=== PATIENT | female | born 1960 | race Caucasian/White ===

== ENCOUNTER 2018-02-05 14:16 | Outpatient (REF) | payer SELFPAY ==
[2018-02-05 22:59] LABS: ALT 27 U/L (12-78); AST 18 U/L (15-37); Albumin 3.5 g/dL (3.4-5.0); Alkaline Phosphatase 59 U/L (46-116); Anion Gap 8.1 mmol/L (3-11); BUN 14 mg/dL (7-18); Bilirubin, Total 0.4 mg/dL (0.2-1.0); CO2 28.9 mmol/L (21.0-32.0); CREATININE 0.78 mg/dL (0.55-1.02); Chloride 104 mmol/L (98-107); Cholesterol 169 mg/dL (50-200); Glucose 93 mg/dL (70-100); HDL Cholesterol 51 mg/dL (40-60); LDL CHOLESTEROL 105 mg/dL (<100); Sodium 141 mmol/L (136-145); Total Protein 6.8 g/dL (6.4-8.2); Triglyceride 87 mg/dL (30-150)
[2018-02-05 23:02] LABS: Hemoglobin A1C 5.6 % (4.5-6.2)
[2018-02-07 10:45] LABS: Hepatitis C Ab w Rflx HCV PCR Negative (NEGAT)
== END 2018-02-05 14:36 ==
LOC: NCHCN 14:16
PROVIDERS: PCP Registered Nurse; Visit Provider Nurse Practitioner Family
DX: Z13.228 Encounter for screening for other metabolic disorders (principal); Z13.1 Encounter for screening for diabetes mellitus; Z11.59 Encounter for screening for other viral diseases; Z13.220 Encounter for screening for lipoid disorders; Z00.00 Encounter for general adult medical examination without abnormal findings
CPT/HCPCS: 80053; 80061; 83721; 86803; 83036

== ENCOUNTER 2020-05-19 00:28 | Outpatient (CLI) | payer OTHER, SELFPAY ==
--- NOTE | 2020-05-19 | DI.MAMMO_ITS ---
EXAM: MG MAMMO SCREENING CLINICAL HISTORY: SCREENING, Z12.39 TECHNIQUE: Bilateral full field digital CC and MLO mammographic images were obtained with 3D tomosyn thesis and utilizing computer aided detection (CAD). COMPARISON: Available for comparison. FINDINGS: Masses/Architectural Distortion: None seen. Microcalcifications: No suspicious pleomorphic-type are seen. Skin Thickening/Nipple Retraction: None. IMPRESSION: 1. No significant interval change with no specific features of malignancy noted. 2. Unless there is more urgent need, screening mammography is recommended, as per [place] guidelines. BI-RADS Category 1 - Negative Breast Density - Category B - Scattered areas of fibroglandular density Breast density category C or D implies that the patient has dense breast tissue. Dense breast tissue is very common and is not abnormal but dense breast tissue can make it harder to find cancer on a ma mmogram. Also, dense breast tissue may increase their breast cancer risk. This information about the result of the mammogram report was provided to the patient to raise their awareness. Use this report when you speak with the patient about their risks for breast cancer, which includes their family hist ory. At that time, you may recommend for more screening tests (Ultrasound or MRI) as they might be us eful based on their risk. A negative radiographic report should not delay biopsy if a dominant or clinically suspicious mass is present. Up to ten percent of cancers are not identified on mammography. A negative report may reinforce clinical impression. Adenosis and dense breasts may obscure an underlying neoplasm. False positive reports average 6 to 10%. Patient will receive a letter notifying them of these results.
== END 2020-05-19 00:29 | disposition home or self-care (01) ==
LOC: DI 00:29
PROVIDERS: PCP Registered Nurse; Visit Provider Nurse Practitioner Family
DX: Z12.31 Encounter for screening mammogram for malignant neoplasm of breast (principal)
CPT/HCPCS: 77063; 77067

== ENCOUNTER 2020-05-26 11:40 | Outpatient (REF) | payer OTHER, SELFPAY ==
[2020-05-26 13:20] LABS: Abs Immature Grans 0.04 10^3/uL (0.0-0.06); Absolute Basophil Count 0.06 10^3/uL (0.0-0.2); Absolute Eosinophil Count 0.22 10^3/uL (0.0-0.7); Absolute Lymphocyte Count 2.63 10^3/uL (1.2-3.4); Absolute Monocyte Count 0.36 10^3/uL (0.1-0.8); Absolute Neutrophil Count 3.71 10^3/uL (1.2-6.7); Basophils % 0.9; Eosinophils % 3.1; HCT 45.9 % (36.0-46.0); HGB 14.8 g/dL (11.2-15.7); Immature Grans % 0.6; Lymphocytes % 37.5; MCH 28.4 pg (27.0-33.0); MCHC 32.2 % (32.0-36.0); MCV 88.1 fL (80-95); MPV 11.1 fL (8.0-11.0); Monocytes % 5.1; Neutrophils % 52.8; Nucleated RBC 0 %; Platelet Count 276 10^3/uL (130-400); RBC 5.21 10^6/uL (3.93-5.22); RDW 12.7 % (11.7-14.6); WBC 7.02 10^3/uL (4.4-10.8)
[2020-05-26 13:38] LABS: ALT 30 U/L (14-59); AST 17 U/L (15-37); Albumin 3.7 g/dL (3.4-5.0); Alkaline Phosphatase 66 U/L (46-116); Anion Gap 6.6 mmol/L (3-11); BUN 12 mg/dL (7-18); Bilirubin, Total 0.4 mg/dL (0.2-1.0); CO2 30.4 mmol/L (21.0-32.0); CREATININE 0.8 mg/dL (0.55-1.02); Calcium 8.9 mg/dL (8.5-10.1); Calculated LDL 106 mg/dL (<100); Chloride 105 mmol/L (98-107); Cholesterol 181 mg/dL (<200); Glucose 86 mg/dL (74-106); HDL Cholesterol 59 mg/dL (40-60); Potassium 3.9 mmol/L (3.5-5.1); Sodium 142 mmol/L (136-145); TSH (W/Ref FT4) 1.18 uIU/mL (0.36-3.74); Total Protein 7.3 g/dL (6.4-8.2); Triglyceride 83 mg/dL (<150)
[2020-05-27 11:20] LABS: HIV-1/2 Ag & Ab Screen Negative (Negative)
== END 2020-05-26 11:41 | disposition home or self-care (01) ==
LOC: NCHCN 11:40
PROVIDERS: PCP Registered Nurse; Visit Provider Nurse Practitioner Family
DX: Z00.00 Encounter for general adult medical examination without abnormal findings
CPT/HCPCS: 80053; 80061; 87389; 84443; 85025

== ENCOUNTER 2020-08-08 03:36 | Outpatient (CLI) | payer OTHER, SELFPAY ==
[2020-08-08 11:34] LABS: Source Nasal/Nares
[2020-08-08 18:17] LABS: COVID-19 PCR Negative (Negative)
== END 2020-08-08 03:37 | disposition home or self-care (01) ==
LOC: LBO 03:37
PROVIDERS: PCP Registered Nurse; Visit Provider Surgery
DX: Z20.822 Contact with and (suspected) exposure to COVID-19 (principal); Z01.818 Encounter for other preprocedural examination
CPT/HCPCS: 87635

== ENCOUNTER 2020-08-10 11:50 | Day surgery (SDC) | payer OTHER, SELFPAY ==
--- NOTE | 2020-08-10 09:27 | HPE_ITS ---
Date of service: 08/10/20 Time of Service: 13:48 Assessment and Plan Assessment and plan (1) Encounter for colorectal cancer screening: Status: Acute Assessment and plan: Mrs. Medel is a pleasant 60-year-old female who over the last year has been having intermittent bloating, increased gas and burping after eating. She also complains of some right lower quadrant discomfort. She was noted to have blood in her stool when tested at the primary care physician's office. She also tells me that she intermittently has bright red blood and she thinks that that is a hemorrhoid. She did have a colonoscopy in her 20s for some bleeding after delivering one of her children and she was told she had a hemorrhoid which was banded. She also tells me she had an upper endoscopy done years ago but cannot remember the findings. She was recently started on omeprazole which does help with the bloating and burping. We discussed doing both an upper endoscopy as well as a colonoscopy. Occult blood could be from her stomach as much as it could be from her large bowel. We reviewed both procedures in detail using pamphlets. Discussed Covid testing and quarantine requirements prior to her procedures. She tells me that she works at a [employer] and she gets tested for Covid twice a week. Risks, benefits and complications have been reviewed. Complications include but are not limited to bleeding, pain, perforation, missed small lesion/polyp, sore throat, aspiration and adverse reaction to the medications. Questions were entertained and answered to their satisfaction and they wished to proceed. No guarantees were given or implied. COVID-19 testing explained to the patient. Reason for test reviewed. Quarantine per state requirements reviewed with patient. Patient understands and agrees to testing. Proceed with colonoscopy and EGD under sedation. (2) Heart burn: Status: Acute History of Present Illness Narrative: Ms Medel is a pleasant 60-year-old female who was referred to the office for a colonoscopy. She tells me that over the last year she has had intermittent right lower quadrant discomfort, bloating, gas and increased burping. It can be after eating. She has had intermittent bright red blood per rectum, this is usually just on the toilet paper. She had a colonoscopy in her 20s after having her baby due to rectal bleeding. She stated that she was told it was normal except for some hemorrhoids which were removed. She also tells me that she had an upper endoscopy years ago for heartburn. She was never asked to start an antacid at that time. She recently was started on omeprazole 20 mg daily by her primary care physician. She does feel like that has helped slightly with her bloating and gas. Her stool was also tested in the office and was noted to be positive for blood. She denies any family history of colon or rectal cancer. She denies any unintentional weight loss, nausea or vomiting. She is otherwise fairly healthy active 60-year-old. She denies any heart disease, history of CA, history of breathing issues. She does have hearing loss and wears bilateral hearing aids. No new issues since she was seen in the office Review of Systems Constitutional Constitutional: Denies fever(s), Denies headache(s) and Denies weight loss Eyes Eyes: Denies exophthalmos ENT Ears, Nose, Mouth, and Throat: Denies change in voice and Denies headache(s) Cardiovascular Cardiovascular: Denies chest pain, Denies chest pain at rest, Denies irregular heart rhythm, Denies dyspnea and Denies dyspnea on exertion Respiratory Respiratory: Denies cough, Denies dyspnea and Denies dyspnea on exertion Gastrointestinal Gastrointestinal: Reports as per HPI Genitourinary Genitourinary: Denies dysuria, Denies urinary incontinence and Denies urinary urgency Musculoskeletal Musculoskeletal: Reports system reviewed and no additional complaints, except as documented Integumentary/Breasts Skin/Breast: Reports system reviewed and no additional complaints, except as documented Neurologic Neurologic: Denies headache(s) Endocrine Endocrine: Reports system reviewed and no additional complaints, except as documented Hematologic/Lymphatic Hematologic/Lymphatic: Denies easy bruising and Denies lymphadenopathy [facility] Medical History Hearing loss History of hemorrhoids Surgical History History of D&C (~1986) History of D&C (~2006) History of laparoscopy History of tonsillectomy Social History Smoking/Tobacco Use Status: Former Tobacco Use Quit Date: 04/15/92 Smoking risk assessment performed?: Yes Alcohol Intake: never Drug use: Never Substance use type: does not use Current gender identity: female Do you feel safe at home: Yes Do you feel safe in your relationship?: Yes Meds Allergies and Home Medications Allergies Allergy/AdvReac Type Severity Reaction Status Date / Time No Known Allergies Allergy Unverified 08/08/20 14:55 Home Medications Medication Instructions Recorded Confirmed Type cetirizine 10 mg tablet 10 mg PO DAILY PRN 06/27/20 08/10/20 History omeprazole 20 mg capsule,delayed 20 mg PO DAILY 06/27/20 08/10/20 History release Exam Const General: healthy appearing and comfortable Resp Effort & Inspection: normal respiratory effort Auscultation: clear to auscultation bilaterally Cardio Rate: regular rate Rhythm: regular rhythm Heart Sounds: no click, no gallops and no murmurs
--- NOTE | 2020-08-10 09:34 | ENDO_ITS ---
Date of service: 08/10/20 Time of Service: 16:08 Endoscopy Report DATE OF PROCEDURE: 08/10/20 PRE-OP DIAGNOSIS: Colon Cancer Screening, Heart Burn PROCEDURE: 1. EGD with biopsies 2. Colonoscopy with polypectomy SURGEON: Gifty Steve ANESTHESIA TYPE: General:No Airway ESTIMATED BLOOD LOSS: 3 PATHOLOGY: other (bx of antrum, gastric polyp, GE junction bx, Ascending, sigmoid x2 and rectal polyp) COMPLICATIONS: None DISPOSITION: same day INDICATIONS: Mrs. Medel is a pleasant 60-year-old female who over the last year has been having intermittent bloating, increased gas and burping after eating. She also complains of some right lower quadrant discomfort. She was noted to have blood in her stool when tested at the primary care physician's office. She also tells me that she intermittently has bright red blood and she thinks that that is a hemorrhoid. She did have a colonoscopy in her 20s for some bleeding after delivering one of her children and she was told she had a hemorrhoid which was banded. She also tells me she had an upper endoscopy done years ago but cannot remember the findings. She was recently started on omeprazole which does help with the bloating and burping. We discussed doing both an upper endoscopy as well as a colonoscopy. Occult blood could be from her stomach as much as it could be from her large bowel. We reviewed both procedures in detail using pamphlets. Discussed Covid testing and quarantine requirements prior to her procedures. She tells me that she works at a [employer] and she gets tested for Covid twice a week. Risks, benefits and complications have been reviewed. Complications include but are not limited to bleeding, pain, perforation, missed small lesion/polyp, sore throat, aspiration and adverse reaction to the medications. Questions were entertained and answered to their satisfaction and they wished to proceed. No guarantees were given or implied. COVID-19 testing explained to the patient. Reason for test reviewed. Quarantine per state requirements reviewed with patient. Patient understands and agrees to testing. Proceed with colonoscopy and EGD under sedation. PREP: Miralax/Dulcolax PROCEDURE START TIME: 15:02 PROCEDURE END TIME: 15:50 COLONOSCOPY RETRACTION TIME: 30 minutes FINDINGS: mild inflammation of the stomach and esophagus. Duodenum normal 4 polyps One sigmoid polyp >1 cm, area tattooed PROCEDURE DESCRIPTION: After informed consent was obtained the patient was t dory to the procedure room and placed in a supine position. Monitors were applied and a time out was done. The patients name, date of , procedure type, allergies to medications and metal in their body was reviewed. A bite block was placed and the patient was sedated. Once sedated and comfortable the gastroscope was advanced through the oropharynx which was grossly normal into the esophagus. The proximal and mid- esophagus were normal. In the distal esophagus there was mild inflammation noted. The scope was advanced into the stomach and through the pylorus into the 3rd portion of the duodenum. The duodenum was noted to be normal. The scope was retracted back into the stomach. There was mild inflammation noted in the antrum and body. Biopsies were done to rule out H. pylori. There were no ulcers. One polyp was noted in the body of the stomach, and removed and sent to pathology. The scope was retro-flexed. The cardia and fundus were noted to be normal. There was no hiatal hernia noted. The scope was retracted back into the esophagus and biopsies were done of the GE junction to rule out Maki's. The Z line was regular. The GE junction was at 35 cm. While the patient was still sedated they were placed in a left decubitous position. A rectal exam was done. External exam revealed Grade 2 hemorrhoids. Internal exam revealed a decreased sphincter tone and no palpable masses. The scope was then introduced and retro-flexed. No internal hemorrhoids, masses or polyps were identified on retroflexion. The scope was then advanced to the cecum without difficulty. The ileocecal valve and appendiceal orifice were identified. The prep was good. The scope was then slowly retracted over 30 minutes back into the rectum. Polyps were removed with cold forceps in the ascending colon, sigmoid colon and rectum. One larger pedunculated polyp was removed with hot snare in the proximal sigmoid colon. The area was tattooed. There was no diverticulosis noted. The scope was removed and the patient was woken up and taken back to Same day surgery in stable condition. The patient tolerated the procedure well and there were no immediate complications. Follow up:
--- NOTE | 2020-08-10 09:35 | W.PM.DSUDISC ---
Discharge Plan Disposition Patient Disposition: HOME Condition: Good Discharge Details Reason For Visit: Colonoscopy/EGD Attending Provider: Gifty Steve Primary Care Provider: Ayah Mariano Home Meds and New Rx's Prescriptions: New omeprazole 20 mg capsule,delayed release(DR/EC) 20 mg PO BID Qty: 60 RF: 0 Continued cetirizine [All Day Allergy (cetirizine)] 10 mg tablet 10 mg PO DAILY PRNRF: 0 Discontinued bisacodyl [Dulcolax (bisacodyl)] 5 mg tablet,delayed release (DR/EC) 5 mg PO ONCE Qty: 4 RF: 0 polyethylene glycol 3350 17 gram powder in packet 255 g PO DAILY Qty: 15 RF: 0 omeprazole 20 mg capsule,delayed release(DR/EC) 20 mg PO DAILY RF: 0 Discharge Instructions Instructions: Diet for Stomach Ulcers and Gastritis (ED), Gastric Polyps (DC), Gastritis (DC), GERD (Gastroesophageal Reflux Disease) in Children (DC), Diverticulosis (DC), Colorectal Polyps (DC) Additional Instructions: Findings:1- Inflammation of the stomach and esophagus 2. Small polyp in the stomach which looked benign 3. A few polyps in the large intestine 4. Descending and sigmoid diverticulosis I will send a letter to you and call if there is anything worrisome Please call if you develop: fevers >101.5 Nausea or Vomiting Abdominal pain that is not transient Rectal bleeding that is more then a tbsp A hard abdomen and inability to pass gas DAY SURGERY UNIT POST ENDOSCOPY INSTRUCTIONS Instructions for everyone who is given Anesthesia: For your safety, please do the following for the next 24 Hours: a. Do not drive or operate dangerous equipment b. Do not drink alcohol beverages or use any recreational drugs for the first 24 hours or while taking pain medications. The medications in your body may have a reaction that can be dangerous. c. Do not make any important decisions or sign any important papers 1. Generally there are no restrictions on your activity after a day or so has gone by, but you may feel a bit fatigued for a few days. 2. After you arrive home you may have a light meal and return to a normal diet as you can tolerate it without feeling sick to your stomach. 3. After surgery, you may feel pain or discomfort. This should be only transient, but if it persists please contact your doctor. 4. If there are any questions regarding the findings of your procedure, please feel free to contact your doctor. 6. If you are unable to contact your doctor with a problem, contact the hospital at [phone]. 7. Continue all your regular medications unless directed otherwise. I understand the above instructions and have no questions. Signature of Patient or Responsible Adult Escort Date/Time Name of Responsible Adult Escort Signature of Nurse Date/Time Activity:: Activity as Tolerated Diet:: low acid Discharge Orders Discharge Orders: Discharge Order (Routine); Ordered 08/10/20 Ordered By: Gifty Steve DS: Diagnosis Discharge Diagnosis (1) Encounter for colorectal cancer screening: Status: Acute (2) Heart burn: Status: Acute
[2020-08-10 12:06] VITALS: BP 156/95; PULSE 100; RESP 16; TEMP 36.6; O2SAT 96
[2020-08-10] MEDS: Lactated Ringers 1,000 ML 80 ML IV (12:27)
--- NOTE | 2020-08-10 12:36 | W.ANESPRE ---
General Info Date of Service Date Performed: 08/10/20 Height: 5 ft 1 in Weight: 68.509 kg Body Mass Index (BMI): 28.5 Surgical Procedure: Operation Date: 08/10/20 12:05 Proposed Procedures Side Surgeon p Colonoscopy/Gastroscopy Gifty Steve MD Meds Allergies and Home Medications Allergies Allergy/AdvReac Type Severity Reaction Status Date / Time No Known Allergies Allergy Unverified 08/08/20 14:55 Home Medication Medication Instructions Recorded cetirizine 10 mg tablet 10 mg PO DAILY PRN 06/27/20 omeprazole 20 mg capsule,delayed 20 mg PO DAILY 06/27/20 release Current Visit Medications: Current Medications Generic Name Dose Route Start Last Admin Trade Name Freq PRN Reason Stop Dose Admin Hyoscyamine Sulfate 0.125 mg 08/10/20 09:36 Hyoscyamine 0.125 Mg Sl/Oral/Chew SL DIRECTED PRN Ringer's Solution 1,000 mls @ 80 mls/hr 08/10/20 06:00 08/10/20 12:27 IV 09/08/20 23:59 80 mls/hr INFUSION JEANE Administration IV Miscellaneous Supplies 1 each 08/10/20 06:00 Iv Access IV 09/08/20 23:59 DIRECTED JEANE Ondansetron HCl 4 mg 08/10/20 09:36 Ondansetron 4 Mg/2 Ml Vial IVP Q4H PRN PRN Nausea / Vomiting Sodium Chloride 0 ml 08/10/20 06:00 Normal Saline Flush 10 Ml Syr IV 09/08/20 23:59 PRN PRN Sodium Chloride 0 ml 08/10/20 06:00 Normal Saline 10 Ml Vial IJ 09/08/20 23:59 DIRECTED PRN Sterile Water 0 ml 08/10/20 06:00 Water,Injection,Sterile 10 Ml Vial IJ 09/08/20 23:59 DIRECTED PRN PFSH Active Problems Active Problems: Problem Status Onset Code Guaiac positive stools R19.5 Heart burn R12 Encounter for colorectal cancer screening Z12.11, Z12.12 Medical History Medical History Hearing loss History of hemorrhoids Surgical History Surgical History History of D&C (~1986) History of D&C (~2006) History of laparoscopy History of tonsillectomy Tobacco Smoking/Tobacco Use Status: Former Tobacco Use Alcohol Alcohol Intake: never Substance Use Substance use: Never Substance use type: does not use Vital Signs and Lab Results Vital Signs Most Recent Vital Signs in EMR: Most Recent Vital Signs Temp Pulse Resp BP Pulse Ox 36.6 C 100 H 16 156/95 H 96 08/10/20 12:06 08/10/20 12:06 08/10/20 12:06 08/10/20 12:06 08/10/20 12:06 Lab Results Blood Type / Crossmatch: No Data to Display Complete Blood Count: White Blood Count 7.02 10^3/uL (4.4-10.8) 05/26/20 10:00 05/26/20 Red Blood Count 5.21 10^6/uL (3.93-5.22) 05/26/20 10:00 05/26/20 Hemoglobin 14.8 g/dL (11.2-15.7) 05/26/20 10:00 05/26/20 Hematocrit 45.9 % (36.0-46.0) 05/26/20 10:00 05/26/20 Platelet Count 276 10^3/uL (130-400) 05/26/20 10:00 05/26/20 Complete Metabolic Panel: Sodium Level 142 mmol/L (136-145) 05/26/20 10:00 05/26/20 Potassium Level 3.9 mmol/L (3.5-5.1) 05/26/20 10:00 05/26/20 Chloride Level 105 mmol/L (98-107) 05/26/20 10:00 05/26/20 Carbon Dioxide Level 30.4 mmol/L (21.0-32.0) 05/26/20 10:00 05/26/20 Blood Urea Nitrogen 12 mg/dL (7-18) 05/26/20 10:00 05/26/20 Creatinine 0.8 mg/dL (0.55-1.02) 05/26/20 10:00 05/26/20 Calcium Level 8.9 mg/dL (8.5-10.1) 05/26/20 10:00 05/26/20 Albumin 3.7 g/dL (3.4-5.0) 05/26/20 10:00 05/26/20 Glucose Level 86 mg/dL (74-106) 05/26/20 10:00 05/26/20 Hemoglobin A1c 5.6 % (4.5-6.2) 02/05/18 14:00 02/05/18 Liver Function Panel: Alanine Aminotransferase (ALT/SGPT) 30 U/L (14-59) 05/26/20 10:00 05/26/20 Aspartate Amino Transf (AST/SGOT) 17 U/L (15-37) 05/26/20 10:00 05/26/20 Coagulation Panel: No Data to Display Cardiac Panel: No Data to Display Arterial Blood Gas: No Data to Display Venous Blood Gas: No Data to Display Pancreas Panel: Lipase 181 U/L (73-393) 01/10/16 14:10 01/10/16 Thyroid Panel: Thyroid Stimulating Hormone (TSH) 1.18 uIU/mL (0.36-3.74) 05/26/20 10:00 05/26/20 Infectious Disease: Coronavirus (COVID-19)(PCR) Negative (Negative) 08/08/20 10:31 08/08/20 Coronavirus 2019 Source Nasal/nares 08/08/20 10:31 08/08/20 HIV (1&2) Ag and Ab, 4th Generation Negative (Negative) 05/26/20 10:00 05/26/20 Hepatitis C Antibody Negative (NEGAT) 02/05/18 14:00 02/05/18 Blood Cultures: No Data to Display Toxicology Panel: No Data to Display Panel: No Data to Display Anesthesia Assessment and Plan Anesthesia History Personal History: No History of Anesthesia Complications Family History: No Family History of Anesthesia Complications Exercise Tolerance Exercise Tolerance: Metabolic Equivalents>4 Pertinent Negatives Pertinent Negatives: No Major Cardiovascular Symptoms or Complaints, No Major Pulmonary Symptoms or Complaints and No History of CVA/TIA Cardiac & Pulmonary Exam Cardiac Exam: Normal S1/S2 Heart Sounds Pulmonary Exam: Clear Bilateral Breath Sounds and Seasonal Allergies Airway Exam Known Difficult Airway: No Mallampati Class: 2 Mouth Opening: Normal (> 3cm) Thyromental Distance: Greater than 3 cm Neck Range of Motion: Full ROM Neck Circumference: Normal Teeth Condition: Removable Dentures/Plates Upper and Removable Dentures/Plates Lower ASA Classification ASA Score: ASA 2 ASA Emergency: No NPO Status NPO Status: NPO Clears >2 hours, Solids >8 hours Anesthesia Plan Anesthesia Technique: General Anesthesia Airway Planned: Natural Airway Monitors Used: Standard Monitors
[2020-08-10 12:51] VITALS: BMI 28.5
--- NOTE | 2020-08-10 15:05 | BOWEL_PTH ---
PATIENT: Deb Medel LOC: [facility] U#:[id number] AGE/SX: 60/F ROOM: RE08/10/[address]: Gifty Steve MD : 1960 BED: DIS: 08/10/2020 SPEC #: [id number] RECD: 08/10/20 16:40 STATUS: CHRISTINA RESanjuana #: [id number] SHARON: 08/10/20 15:[address]: Gifty Steve DEPT: Surgical Specimen RECD BY: Catalina Cortés ENTERED: 08/10/20 16:41 SP TYPE: Bowel OTHR DR: Ayah Montez Tissues: 1 - STOMACH BIOPSY 2 - STOMACH BIOPSY 3 - ESOPHAGUS BIOPSY 4 - BIOPSY BOWEL 5 - BIOPSY BOWEL 6 - BIOPSY BOWEL 7 - BIOPSY BOWEL Procedures: GROSS AND MICRO LEVEL 4 Comments: [id number]
[2020-08-10] MEDS: Endoscopic Tattoo 5 ML SYR IJ (15:42)
[2020-08-10 16:17] VITALS: BP 129/78; PULSE 80; RESP 14; TEMP 36.5; O2SAT 95
[2020-08-10 16:42] VITALS: BP 151/94; PULSE 84; RESP 16; TEMP 36.2; O2SAT 96
--- NOTE | 2020-08-10 16:48 | W.ANESPOSTOP ---
Postoperative Evaluation Date, Time and Location Date Performed: 08/10/20 Time Performed: 16:48 Patient Location: Day Surgery Unit Vital Signs Most Recent Imported Vital Signs: Most Recent Vital Signs Temp Pulse Resp BP Pulse Ox 36.5 C 80 14 129/78 95 08/10/20 16:17 08/10/20 16:17 08/10/20 16:17 08/10/20 16:17 08/10/20 16:17 Pain Score Most Recent Pain Score: Most Recent Pain Score Pain Level 0 08/10/20 16:17 Assessment Mental Status: Awake (Alert & Oriented to Patient Baseline) Airway and Respiratory Function: Patent airway with normal (patient baseline) respiratory exam Cardiovascular Function: Hemodynamically Stable Hydration Status: Adequately Hydrated Nausea & Vomiting: No Nausea or Vomiting Pain: Pt. Denies Any Pain Peripheral Nerve Block: Patient did not receive a nerve block
== END 2020-08-10 17:15 | disposition home or self-care (01) ==
LOC: SUR 11:50
PROVIDERS: PCP Registered Nurse; Visit Provider Surgery
PROC: (CPT 45385; principal; 2020-08-10 12:00)
DX: Z12.11 Encounter for screening for malignant neoplasm of colon (principal); K31.7 Polyp of stomach and duodenum; K62.1 Rectal polyp; D12.2 Benign neoplasm of ascending colon; D12.5 Benign neoplasm of sigmoid colon
CPT/HCPCS: 45385; 45380; 45381; 43239; 88305; J2001

== ENCOUNTER 2021-02-15 18:47 | Outpatient (REF) | payer OTHER, SELFPAY ==
[2021-02-17 10:44] LABS: COVID-19 RT-PCR UVMMC Result Negative (Negative)
== END 2021-02-15 18:48 | disposition home or self-care (01) ==
LOC: NCHCN 18:47
PROVIDERS: PCP Registered Nurse; Visit Provider Nurse Practitioner Community Health
DX: Z20.822 Contact with and (suspected) exposure to COVID-19 (principal); J06.9 Acute upper respiratory infection, unspecified
CPT/HCPCS: U0003

== ENCOUNTER 2021-09-28 08:38 | Outpatient (REF) | payer OTHER, SELFPAY ==
--- NOTE | 2021-09-28 08:04 | PAPFT_PTH ---
PATIENT: Deb Medel LOC: [facility]#:[id number] AGE/SX: 61/F ROOM: RE09/28/[address]: Kelsi Mendez : 1960 BED: DIS: 09/28/2021 SPEC #: [id number] RECD: 09/28/21 17:15 STATUS: CHRISTINA RESanjuana #: [id number] SHARON: 09/28/21 08:[address]: Kelsi Mendez DEPT: [facility] Cytology RECD BY: Catalina Cortés ENTERED: 09/28/21 17:16 SP TYPE: PAPFT OTHR DR: Ayah Montez Tissues: 1 - CX/ENDOCX FOR PAP SMEARS Procedures: PAP THIN PREP/[facility] Screening HPV DNA PROBE Comments: [id number] (CHLAMYDIA/GC)
[2021-09-28 15:38] LABS: ALT 35 U/L (14-59); AST 32 U/L (15-37); Albumin 3.6 g/dL (3.4-5.0); Alkaline Phosphatase 72 U/L (46-116); Anion Gap 5.5 mmol/L (3-11); BUN 11 mg/dL (7-18); Bilirubin, Total 0.4 mg/dL (0.2-1.0); CO2 30.5 mmol/L (21.0-32.0); CREATININE 0.8 mg/dL (0.55-1.02); Calcium 8.8 mg/dL (8.5-10.1); Calculated LDL 126 mg/dL (<100); Chloride 107 mmol/L (98-107); Cholesterol 200 mg/dL (<200); Glucose 90 mg/dL (74-106); HDL Cholesterol 58 mg/dL (40-60); Magnesium 2.2 mg/dL (1.8-2.4); Potassium 3.7 mmol/L (3.5-5.1); Sodium 143 mmol/L (136-145); Total Protein 6.9 g/dL (6.4-8.2); Triglyceride 83 mg/dL (<150)
[2021-09-28 15:39] LABS: Hemoglobin A1C 5.8 % (<5.7)
[2021-09-29 15:06] LABS: Chlamydia Result Negative (Negative); GC Result Negative (Negative)
== END 2021-09-28 08:39 | disposition home or self-care (01) ==
LOC: NCHCN 08:38
PROVIDERS: PCP Registered Nurse; Visit Provider Nurse Practitioner Family
DX: Z11.3 Encounter for screening for infections with a predominantly sexual mode of transmission (principal); Z12.4 Encounter for screening for malignant neoplasm of cervix; Z11.51 Encounter for screening for human papillomavirus (HPV); K21.9 Gastro-esophageal reflux disease without esophagitis; Z51.81 Encounter for therapeutic drug level monitoring; E66.3 Overweight; R03.0 Elevated blood-pressure reading, without diagnosis of hypertension; Z00.00 Encounter for general adult medical examination without abnormal findings; Z13.1 Encounter for screening for diabetes mellitus
CPT/HCPCS: 80053; 80061; 87491; 87591; 88142; 83036; 83735; 87624

== ENCOUNTER 2021-11-13 17:51 | Outpatient (REF) | payer OTHER, SELFPAY ==
[2021-11-13 21:39] LABS: Anion Gap 6.4 mmol/L (3-11); BUN 18 mg/dL (7-18); CO2 27.6 mmol/L (21.0-32.0); CREATININE 0.8 mg/dL (0.55-1.02); Calcium 9.1 mg/dL (8.5-10.1); Chloride 106 mmol/L (98-107); Glucose 115 mg/dL (74-106); Potassium 3.6 mmol/L (3.5-5.1); Sodium 140 mmol/L (136-145)
== END 2021-11-13 17:52 | disposition home or self-care (01) ==
LOC: NCHCN 17:51
PROVIDERS: PCP Registered Nurse; Visit Provider Nurse Practitioner Family
DX: I10 Essential (primary) hypertension (principal)
CPT/HCPCS: 80048

== ENCOUNTER 2021-12-08 18:53 | Outpatient (REF) | payer OTHER, SELFPAY ==
[2021-12-08 16:47] LABS: Anion Gap 9.3 mmol/L (3-11); BUN 11 mg/dL (7-18); CO2 27.7 mmol/L (21.0-32.0); CREATININE 0.8 mg/dL (0.55-1.02); Calcium 8.4 mg/dL (8.5-10.1); Chloride 107 mmol/L (98-107); Glucose 136 mg/dL (74-106); Potassium 3.4 mmol/L (3.5-5.1); Sodium 144 mmol/L (136-145)
== END 2021-12-08 18:54 | disposition home or self-care (01) ==
LOC: NCHCN 18:53
PROVIDERS: PCP Registered Nurse; Visit Provider Nurse Practitioner Family
DX: R03.0 Elevated blood-pressure reading, without diagnosis of hypertension (principal)
CPT/HCPCS: 80048

== ENCOUNTER → 2022-01-11 03:45 | Outpatient (CLI) | payer OTHER, SELFPAY ==
--- NOTE | 2022-01-11 08:00 | DI.MAMMO_ITS ---
Exam(s) MAMMO SCREENING EXAM: MAMMO SCREENING CLINICAL HISTORY: SCREENING, Z12.39, [facility],Z00.00 TECHNIQUE: Bilateral full field digital CC and MLO mammographic images were obtained with 3D tomosyn thesis and utilizing computer aided detection (CAD). COMPARISON: Available for comparison. FINDINGS: Masses/Architectural Distortion: None seen. Microcalcifications: No suspicious pleomorphic-type are seen. Skin Thickening/Nipple Retraction: None. IMPRESSION: 1. No significant interval change with no specific features of malignancy noted. 2. Unless there is more urgent need, screening mammography is recommended, as per [place] [employer] guidelines. BI-RADS Category 1 - Negative Breast Density - Category B - Scattered areas of fibroglandular density Breast density category C or D implies that the patient has dense breast tissue. Dense breast tissue is very common and is not abnormal but dense breast tissue can make it harder to find cancer on a ma mmogram. Also, dense breast tissue may increase their breast cancer risk. This information about the result of the mammogram report was provided to the patient to raise their awareness. Use this report when you speak with the patient about their risks for breast cancer, which includes their family hist ory. At that time, you may recommend for more screening tests (Ultrasound or MRI) as they might be us eful based on their risk. A negative radiographic report should not delay biopsy if a dominant or clinically suspicious mass is present. Up to ten percent of cancers are not identified on mammography. A negative report may reinforce clinical impression. Adenosis and dense breasts may obscure an underlying neoplasm. False positive reports average 6 to 10%. Patient will receive a letter notifying them of these results.
== END ==
PROVIDERS: PCP Registered Nurse; Visit Provider Nurse Practitioner Family
DX: Z12.31 Encounter for screening mammogram for malignant neoplasm of breast (principal)
CPT/HCPCS: 77063; 77067

== ENCOUNTER 2022-01-16 18:22 | Outpatient (REF) | payer OTHER, SELFPAY ==
[2022-01-16 20:52] LABS: ALT 25 U/L (14-59); AST 20 U/L (15-37); Albumin 3.3 g/dL (3.4-5.0); Alkaline Phosphatase 59 U/L (46-116); Anion Gap 4.6 mmol/L (3-11); BUN 15 mg/dL (7-18); Bilirubin, Total 0.2 mg/dL (0.2-1.0); CO2 31.4 mmol/L (21.0-32.0); CREATININE 0.9 mg/dL (0.55-1.02); Calcium 8.9 mg/dL (8.5-10.1); Chloride 107 mmol/L (98-107); Estimated GFR 71.39 (mL/min/1.73m2); Glucose 109 mg/dL (74-106); Potassium 3.7 mmol/L (3.5-5.1); Sodium 143 mmol/L (136-145); Total Protein 6.9 g/dL (6.4-8.2)
== END 2022-01-16 18:23 | disposition home or self-care (01) ==
LOC: NCHCN 18:22
PROVIDERS: PCP Registered Nurse; Visit Provider Nurse Practitioner Family
DX: I10 Essential (primary) hypertension (principal)
CPT/HCPCS: 80053

== ENCOUNTER 2022-11-21 18:26 | Outpatient (REF) | payer OTHER, SELFPAY ==
[2022-11-21 20:56] LABS: Anion Gap 5.9 mmol/L (3-11); BUN 13 mg/dL (7-18); CO2 29.1 mmol/L (21.0-32.0); CREATININE 1.1 mg/dL (0.55-1.02); Calcium 8.9 mg/dL (8.5-10.1); Chloride 109 mmol/L (98-107); Estimated GFR 56.11 (mL/min/1.73m2); Glucose 102 mg/dL (74-106); Potassium 3.9 mmol/L (3.5-5.1); Sodium 144 mmol/L (136-145)
[2022-11-21 21:01] LABS: Hemoglobin A1C 5.8 % (<5.7)
== END 2022-11-21 18:27 | disposition home or self-care (01) ==
LOC: NCHCN 18:26
PROVIDERS: PCP Registered Nurse; Visit Provider Nurse Practitioner Family
DX: Z00.00 Encounter for general adult medical examination without abnormal findings (principal); I10 Essential (primary) hypertension; R73.03 Prediabetes
CPT/HCPCS: 80048; 83036

== ENCOUNTER → 2023-01-25 02:33 | Outpatient (CLI) | payer OTHER, SELFPAY ==
--- NOTE | 2023-01-25 | DI.DEXA_ITS ---
Exam(s) XR DEXA BONE DENSITY W/WO LAUREL EXAM: XR DEXA BONE DENSITY W/WO LAUREL CLINICAL HISTORY: PREVENTIVE HEALTH CARE Z00.00 TECHNIQUE: HoloAsysco C densitometer analysis of left hip, lumbar spine and left forearm. Lat eral survey image of the thoracic and lumbar spine. COMPARISON: CR LUMBAR SPINE COMPLETE from 04/25/2009 FINDINGS: Lateral view of the thoracic and lumbar spine shows no evidence of compression fractures. Bone mineral density measurements of the lumbar spine correspond to a total T-score of 0.3, in the no rmal range. Bone mineral density measurements of the left hip correspond to a total T-score of -1.1. The femora l neck T-score is -1.7, in the osteopenic range.. Theleft forearm bone mineral density measurements correspond to a T-score of the distal 3rd of -1.9, in the osteopenic range.. IMPRESSION: Normal bone mineral density of the lumbar spine. Osteopenia of the hip and forearm.
== END ==
PROVIDERS: PCP Registered Nurse; Visit Provider Nurse Practitioner Family
DX: Z13.820 Encounter for screening for osteoporosis (principal); M85.89 Other specified disorders of bone density and structure, multiple sites
CPT/HCPCS: 77080

== ENCOUNTER 2023-01-28 17:37 | Outpatient (REF) | payer OTHER, SELFPAY ==
[2023-01-28 21:30] LABS: Anion Gap 6.6 mmol/L (3-11); BUN 17 mg/dL (7-18); CO2 26.4 mmol/L (21.0-32.0); Calcium 9.3 mg/dL (8.5-10.1); Chloride 107 mmol/L (98-107); Estimated GFR 62.52 (mL/min/1.73m2); Glucose 103 mg/dL (74-106); Potassium 4.2 mmol/L (3.5-5.1); Sodium 140 mmol/L (136-145)
== END 2023-01-28 17:38 | disposition home or self-care (01) ==
LOC: NCHCN 17:37
PROVIDERS: PCP Registered Nurse; Visit Provider Nurse Practitioner Family
DX: E78.5 Hyperlipidemia, unspecified (principal); I10 Essential (primary) hypertension
CPT/HCPCS: 80048

== ENCOUNTER 2023-07-23 12:34 | Outpatient (REF) | payer OTHER, SELFPAY ==
[2023-07-23 15:15] LABS: Bacteria Rare HPF (Negative); C & S Indicated? No; Casts Negative LPF (Negative); Crystals Negative HPF (Negative); Epithelial Cells Few HPF (Negative); Mucus Trace (Negative); RBC Negative HPF (0-2); WBC Negative HPF (0-5)
== END 2023-07-23 12:35 | disposition home or self-care (01) ==
LOC: NCHCN 12:34
PROVIDERS: PCP Registered Nurse; Visit Provider Nurse Practitioner Family
DX: R39.15 Urgency of urination (principal)
CPT/HCPCS: 81015

== ENCOUNTER 2023-11-20 13:19 | Outpatient (REF) | payer OTHER, SELFPAY ==
[2023-11-20 22:06] LABS: Calculated LDL 108 mg/dL (<100); Cholesterol 178 mg/dL (<200); HDL Cholesterol 59 mg/dL (40-60); Triglyceride 55 mg/dL (<150)
[2023-11-21 11:49] LABS: Hemoglobin A1C 5.7 % (<5.7)
== END 2023-11-20 13:20 | disposition home or self-care (01) ==
LOC: NCHCN 13:19
PROVIDERS: PCP Registered Nurse; Visit Provider Nurse Practitioner Family
DX: E78.5 Hyperlipidemia, unspecified (principal); R73.03 Prediabetes
CPT/HCPCS: 80061; 83036

== ENCOUNTER 2023-12-25 01:53 | Outpatient (CLI) | payer OTHER, SELFPAY ==
--- NOTE | 2023-12-25 | DI.MAMMO_ITS ---
Exam(s) MAMMO SCREENING EXAM: MAMMO SCREENING CLINICAL HISTORY: SCREENING, Z12.38 TECHNIQUE: Mammograms were interpreted according to the usual protocol including computer analysis w [facility] CAD system, tomosynthesis and C-view imaging. COMPARISON: 2017 through 2021 FINDINGS: The breasts are composed of scattered fibroglandular densities, Breast Density category B. No suspicious masses or suspicious microcalcifications are seen. No skin thickening or abnormal axillary lymph nodes are seen. There has been no significant change from prior exams. IMPRESSION: BI-RADS Category 1, Negative mammogram Yearly screening mammography is recommended. Breast Density - Category B, scattered fibroglandular densities. A negative radiographic report should not delay biopsy if a dominant or clinically suspicious mass is present. Up to ten percent of cancers are not identified on mammography. A negative report may reinforce clinical impression. Adenosis and dense breasts may obscure an underlying neoplasm. False positive reports average 6 to 10%. Patient will receive a letter notifying them of these results.
== END 2023-12-25 02:13 ==
LOC: DI 01:54
PROVIDERS: PCP Registered Nurse; Visit Provider Nurse Practitioner Family
DX: Z12.31 Encounter for screening mammogram for malignant neoplasm of breast (principal)
CPT/HCPCS: 77063; 77067

== ENCOUNTER 2025-01-13 15:50 | Outpatient (REF) | payer MEDICARE, OTHER, SELFPAY ==
[2025-01-13 15:58] LABS: HCT 52.2 % (36.0-46.0); HGB 16.5 g/dL (11.2-15.7); MCH 28.2 pg (27.0-33.0); MCHC 31.6 % (32.0-36.0); MCV 89 fL (80-95); MPV 11.0 fL (8.0-11.0); Platelet Count 262 10^3/uL (130-400); RBC 5.86 10^6/uL (3.93-5.22); RDW 13.0 % (11.7-14.6); RDW-SD 42.5 fL; WBC 6.70 10^3/uL (4.4-10.8)
[2025-01-13 16:13] LABS: Hemoglobin A1C 5.5 % (<5.7)
[2025-01-13 16:32] LABS: ALT 34 U/L (14-59); AST 22 U/L (15-37); Albumin 3.8 g/dL (3.4-5.0); Alkaline Phosphatase 66 U/L (46-116); Anion Gap 8.7 mmol/L (3-11); BUN 12 mg/dL (7-18); Bilirubin, Total 0.6 mg/dL (0.2-1.0); CO2 29.3 mmol/L (21.0-32.0); Calcium 9.0 mg/dL (8.5-10.1); Calculated LDL 110 mg/dL (<100); Chloride 105 mmol/L (98-107); Cholesterol 182 mg/dL (<200); Estimated GFR 80.71 (mL/min/1.73m2); Glucose 89 mg/dL (74-106); HDL Cholesterol 59 mg/dL (>or=50); Magnesium 2.2 mg/dL (1.8-2.4); Potassium 4.1 mmol/L (3.5-5.1); Sodium 143 mmol/L (136-145); Total Protein 7.3 g/dL (6.4-8.2); Triglyceride 69 mg/dL (<150)
== END 2025-01-13 15:51 | disposition home or self-care (01) ==
LOC: NCHCN 15:50
PROVIDERS: PCP Registered Nurse; Visit Provider Nurse Practitioner Family
DX: Z00.00 Encounter for general adult medical examination without abnormal findings (principal)
CPT/HCPCS: 80053; 80061; 85027; 83036; 83735

== ENCOUNTER 2025-01-18 16:00 | Outpatient (REF) | payer MEDICARE, SELFPAY ==
[2025-01-18 16:20] LABS: HCT 46.6 % (36.0-46.0); HGB 15.3 g/dL (11.2-15.7); MCH 28.9 pg (27.0-33.0); MCHC 32.8 % (32.0-36.0); MCV 88 fL (80-95); MPV 11.4 fL (8.0-11.0); Platelet Count 252 10^3/uL (130-400); RBC 5.30 10^6/uL (3.93-5.22); RDW 12.7 % (11.7-14.6); RDW-SD 41.1 fL; WBC 7.13 10^3/uL (4.4-10.8)
== END 2025-01-18 16:01 | disposition home or self-care (01) ==
LOC: NCHCN 16:00
PROVIDERS: PCP Registered Nurse; Visit Provider Nurse Practitioner Family
DX: D75.1 Secondary polycythemia (principal)
CPT/HCPCS: 82668; 85027; 81270

== ENCOUNTER → 2025-01-28 08:49 | Outpatient (BNVA) | payer MEDICARE, OTHER, SELFPAY | PROVIDERS: PCP Registered Nurse; Referring Provider Registered Nurse; Visit Provider Physical Therapy Assistant | DX: Z12.11 Encounter for screening for malignant neoplasm of colon (principal); Z86.0102 Personal history of hyperplastic colon polyps; Z86.0109 Personal history of other colon polyps | CPT/HCPCS: S0285 ==

== ENCOUNTER 2025-02-04 11:18 | Day surgery (SDC) | payer MEDICARE, SELFPAY ==
[2025-02-04 11:30] VITALS: BP 140/78; PULSE 101; RESP 16; TEMP 36.4; O2SAT 97
--- NOTE | 2025-02-04 11:43 | W.PM.DSUDISC ---
Date of service: 02/04/25 Discharge Plan Disposition Patient Disposition: Home Condition: Stable Discharge Details Reason For Visit: Colonoscopy due to history tubulovillous adenoma Attending Provider: Edith Silva Primary Care Provider: Cydney Singh Home Meds and New Rx's Prescriptions: Continued atorvastatin [Lipitor] 20 mg tablet 20 mg PO QHS cetirizine [All Day Allergy (cetirizine)] 10 mg tablet 10 mg PO DAILY PRN estradiol 0.01 % (0.1 mg/gram) cream 1 g vaginal QWEEK Patient Comments: twice per week fluticasone propionate 50 mcg/actuation spray,suspension 1 spray intranasal BID Rx Instructions: administer into each nostril omeprazole 20 mg capsule,delayed release(DR/EC) 20 mg PO BID olmesartan 20 mg tablet 20 mg PO DAILY Discontinued bisacodyl [Dulcolax (bisacodyl)] 5 mg tablet,delayed release (DR/EC) 5 mg PO ONCE Qty: 4 0RF Rx Instructions: Take per colonoscopy instructions provided by ordering providers office polyethylene glycol 3350 17 gram/dose powder 17 g PO ONCE Qty: 238 0RF Rx Instructions: Take per colonoscopy instructions provided by ordering providers office Discharge Instructions Additional Instructions: Colonoscopy today shows one polyp that was removed. The polyp is not cancer. But it may be precancerous like the ones you had before. Timing of next colonoscopy will depend on biopsy result of the polyp. If hyperplastic type polyp, next scope would still be in 5 years due to prior tubular and tubulovillous adenomas. I will let you know by mail within the next month what your polyp biopsy shows and when your next scope should be. Stand Alone Forms: Anesthesia Discharge InstVinny, Haylie Umana (DSU) Activity:: Activity as Tolerated Diet:: As Tolerated Discharge Orders Discharge Orders: Discharge Order (Routine); Ordered 02/04/25 Ordered By: Edith Silva DS: Diagnosis Discharge Diagnosis (1) Encounter for colonoscopy due to history of adenomatous colonic polyps: Status: Acute (2) Polyp of transverse colon: Status: Acute
[2025-02-04] MEDS: Lactated Ringers 1,000 ML 80 ML IV (11:55)
--- NOTE | 2025-02-04 11:58 | W.ANESPRE ---
General Info Date of Service Date Performed: 02/04/25 Height: 5 ft 1 in Weight: 68.8 kg Body Mass Index (BMI): 28.6 Surgical Procedure: Operation Date: 02/04/25 12:50 Proposed Procedure Side Surgeon p Colonoscopy Edith Silva MD Meds Allergies and Home Medications Allergies Allergy/AdvReac Type Severity Reaction Status Date / Time No Known Allergies Allergy Verified 02/04/25 11:27 Home Medication ?Medication ?Instructions ?Recorded cetirizine 10 mg tablet (All Day 10 mg PO DAILY PRN 06/27/20 Allergy (cetirizine)) estradiol 0.01% (0.1 mg/gram) 1 g vaginal QWEEK 12/03/23 vaginal cream fluticasone propionate 50 1 spray intranasal BID 12/03/23 mcg/actuation nasal spray,suspension olmesartan 20 mg tablet 20 mg PO DAILY 12/18/23 omeprazole 20 mg capsule,delayed 20 mg PO BID 12/18/23 release atorvastatin 20 mg tablet (Lipitor) 20 mg PO QHS 01/28/25 Current Visit Medications: Current Medications Generic Name Dose Route Start Last Admin Trade Name Freq PRN Reason Stop Dose Admin Ringer's Solution 1,000 mls @ 80 mls/hr 02/04/25 06:00 02/04/25 11:55 IV 02/04/25 23:59 80 mls/hr INFUSION JEANE Administration IV Miscellaneous Supplies 1 each 02/04/25 06:00 Iv Access IV 02/04/25 23:59 DIRECTED JEANE Sodium Biphosphate/Sodium Phosphate 133 ml 02/04/25 06:00 Na Phosphate Enema-Adult 133 Ml Btl LA 02/04/25 23:59 DIRECTED PRN Sodium Chloride 0 ml 02/04/25 06:00 Normal Saline Flush 10 Ml Syr IV 02/04/25 23:59 PRN PRN Sodium Chloride 0 ml 02/04/25 06:00 Normal Saline 10 Ml Vial IJ 02/04/25 23:59 DIRECTED PRN Sterile Water 0 ml 02/04/25 06:00 Water,Injection,Sterile 10 Ml Vial IJ 02/04/25 23:59 DIRECTED PRN PFSH Active Problems Active Problems: Problem Status Onset Code Encounter for colonoscopy due to history of adenomatous colonic polyps Acute Z12.11, Z86.0101 Lesion of skin of face Acute L98.9 Sensorineural hearing loss (SNHL) of right ear Acute H90.5 Prediabetes Acute R73.03 Essential hypertension Acute I10 Small vessel disease, cerebrovascular Acute I67.9 Guaiac positive stools Acute R19.5 Heart burn Acute R12 Medical History Medical History (Updated 02/04/25 @ 11:43 by Edith Silva MD) GERD (gastroesophageal reflux disease) Mucous cyst of finger Osteopenia Tympanosclerosis, bilateral Hyperlipidemia Hx of adenomatous colonic polyps 2020- Tubular and tubulovillous adenomas Esophagitis determined by biopsy Gastritis determined by biopsy History of hemorrhoids Hearing loss Surgical History Surgical History History of esophagogastroduodenoscopy (EGD) (~07/2020) History of colonoscopy (~07/2020) History of laparoscopy History of tonsillectomy History of D&C (~2006) History of D&C (~1986) Tobacco Smoking/Tobacco Use Status: Former Tobacco Use Passive smoking exposure: No Alcohol Alcohol Intake: never Substance Use Substance use: Never Substance use type: does not use Vital Signs and Lab Results Vital Signs Most Recent Vital Signs in EMR: Most Recent Vital Signs Temp Pulse Resp BP Pulse Ox 36.4 C L 101 H 16 140/78 97 02/04/25 11:30 02/04/25 11:30 02/04/25 11:30 02/04/25 11:30 02/04/25 11:30 Lab Results Complete Blood Count: WBC, (4.4-10.8) 7.13 10^3/uL 01/18/25, 09:30 RBC, (3.93-5.22) 5.30 10^6/uL H 01/18/25, 09:30 Hgb, (11.2-15.7) 15.3 g/dL 01/18/25, 09:30 Hct, (36.0-46.0) 46.6 % H 01/18/25, 09:30 Plt Count, (130-400) 252 10^3/uL 01/18/25, 09:30 Complete Metabolic Panel: Sodium, (136-145) 143 mmol/L 01/13/25, 07:20 Potassium, (3.5-5.1) 4.1 mmol/L 01/13/25, 07:20 Chloride, (98-107) 105 mmol/L 01/13/25, 07:20 Carbon Dioxide, (21.0-32.0) 29.3 mmol/L 01/13/25, 07:20 BUN, (7-18) 12 mg/dL 01/13/25, 07:20 Creatinine, (0.55-1.02) 0.8 mg/dL 01/13/25, 07:20 Est GFR (CKD-EPI 2020), (mL/min/1.73m2) 80.71 01/13/25, 07:20 Magnesium, (1.8-2.4) 2.2 mg/dL 01/13/25, 07:20 Calcium, (8.5-10.1) 9.0 mg/dL 01/13/25, 07:20 Albumin, (3.4-5.0) 3.8 g/dL 01/13/25, 07:20 Glucose, (74-106) 89 mg/dL 01/13/25, 07:20 Hemoglobin A1c, (<5.7) 5.5 % 01/13/25, 07:20 Liver Function Panel: ALT, (14-59) 34 U/L 01/13/25, 07:20 AST, (15-37) 22 U/L 01/13/25, 07:20 Anesthesia Assessment and Plan Anesthesia History Personal History: No History of Anesthesia Complications Family History: No Family History of Anesthesia Complications Exercise Tolerance Exercise Tolerance: Metabolic Equivalents>4 Pertinent Negatives Pertinent Negatives: No Symptoms of GERD, No Major Cardiovascular Symptoms or Complaints, No Major Pulmonary Symptoms or Complaints and No History of CVA/TIA Cardiac & Pulmonary Exam Cardiac Exam: Normal S1/S2 Heart Sounds Pulmonary Exam: Clear Bilateral Breath Sounds Implantable Cardiac Device Does patient have a Pacemaker or an ICD?: No Airway Exam Known Difficult Airway: No Mallampati Class: 2 Mouth Opening: Normal (> 3cm) Thyromental Distance: Greater than 3 cm Neck Range of Motion: Full ROM Neck Circumference: Normal Teeth Condition: Removable Dentures/Plates Upper and Removable Dentures/Plates Lower ASA Classification ASA Score: ASA 2 Emergency Case?: No NPO Status NPO Status: NPO Clears >2 hours, Solids >8 hours Anesthesia Plan Resuscitation Status: Full Code Anesthesia Technique: General Anesthesia Airway Planned: Natural Airway Monitors Used: Standard Monitors
[2025-02-04 12:24] VITALS: BMI 28.6
--- NOTE | 2025-02-04 12:33 | W.COLOREPORT ---
Date of service: 02/04/25 Time of Service: 13:01 Colonoscopy Report Pre-op diagnosis general: History of colon polyps Post-op diagnosis procedure note: same Procedure: Colonoscopy Surgeon: Edith Silva Anesthesia Type: General:No Airway Estimated blood loss (mL): 0 Pathology: other Complications: None Indications: History of tubulovillous adenoma, tubular adenoma Prep: Miralax/Dulcolax Procedure Description: Informed consent was obtained and the patient was taken to the procedure area. The patient was placed in left lateral decubitus position on the procedure table. Timeout was performed. Anesthesia was induced. A lubricated colonoscope was inserted through the anus and passed to the cecum. The cecum was identified by the ileocecal valve and the appendiceal orifice. The scope was then slowly withdrawn and the colonic and rectal mucosa examined. A large amount of gas bubbles were present in the ascending and transverse colon. These were irrigated and suctioned away as well as possible. Small polyps may have been missed. Proximal transverse colon with flat 7mm polyp excised piecemeal with cold forceps. Removal and retrieval were complete. Mild to moderate sigmoid diverticulosis present. The scope was retroflexed in the anorectal junction examined. Uncomplicated internal hemorrhoids with tags present. Assessment and plan: History of Colon Polyps transverse colon polyp Timing of next colonoscopy will depend on path of excised polyp. If hyperplastic, next scope would still be in 5 years due to prior tubular and tubulovillous adenomas.
--- NOTE | 2025-02-04 12:50 | BOWEL_PTH ---
PATIENT: Deb Medel LOC: [facility] U#:[id number] AGE/SX: 65/F ROOM: RE02/04/[address]: Edith Silva MD : 1960 BED: DIS: 02/04/2025 SPEC #: [id number] RECD: 02/04/25 13:12 STATUS: CHRISTINA REQ #: [id number] SHARON: 02/04/25 12:[address]: Edith Silva DEPT: Surgical Specimen RECD BY: Catalina Cortés ENTERED: 02/04/25 13:13 SP TYPE: Bowel OTHR DR: Cydney Singh Tissues: 1 - BIOPSY BOWEL Procedures: GROSS AND MICRO LEVEL 4 Comments: [id number]
[2025-02-04 13:02] VITALS: BP 114/64; PULSE 91; RESP 14; TEMP 36.4; O2SAT 93
--- NOTE | 2025-02-04 13:19 | W.ANESPOSTOP ---
Postoperative Evaluation Date, Time and Location Date Performed: 02/04/25 Time Performed: 13:02 Patient Location: Day Surgery Unit Vital Signs Most Recent Imported Vital Signs: Most Recent Vital Signs Temp Pulse Resp BP Pulse Ox 36.4 C L 91 H 14 114/64 93 02/04/25 13:02 02/04/25 13:02 02/04/25 13:02 02/04/25 13:02 02/04/25 13:02 Pain Score Most Recent Pain Score: Most Recent Pain Score Pain Level 0 02/04/25 13:02 Assessment Mental Status: Awake (Alert & Oriented to Patient Baseline) Airway and Respiratory Function: Patent airway with normal (patient baseline) respiratory exam Cardiovascular Function: Hemodynamically Stable Hydration Status: Adequately Hydrated Nausea & Vomiting: No Nausea or Vomiting Pain: Pt. Denies Any Pain Peripheral Nerve Block: Patient did not receive a nerve block
[2025-02-04 13:24] VITALS: BP 123/64; PULSE 77; RESP 14; TEMP 36.5; O2SAT 93
== END 2025-02-04 13:33 | disposition home or self-care (01) ==
PROVIDERS: PCP Nurse Practitioner Family; Visit Provider Surgery
PROC: 0DJD8ZZ Inspection of Lower Intestinal Tract, Via Natural or Artificial Opening Endoscopic (ICD-10-PCS; CPT 45378; principal; 2025-02-04 12:45)
DX: Z12.11 Encounter for screening for malignant neoplasm of colon (principal); D12.3 Benign neoplasm of transverse colon
CPT/HCPCS: 45380; 88305; J2003; J2704